=== PATIENT | male | born 1940 | race Caucasian/White ===

== ENCOUNTER 2018-09-14 19:08 | Inpatient (IN) | payer MEDICARE, OTHER ==
[2018-09-14 21:52] LABS: ABNORMAL IP MESSAGE 1; ADD MAN DIFF? NO; BASOPHILS % 0.1 % (0.0-2.0); HEMATOCRIT 29.8 % (42.0-52.0); HEMOGLOBIN 9.2 g/dl (14.0-18.0); LYMPHOCYTES # 0.3 10^3/ul (0.8-2.9); LYMPHOCYTES % 3.4 % (15.0-51.0); MEAN CORPUSCULAR HEMOGLOBIN 22.7 pg (29.0-33.0); MEAN CORPUSCULAR HGB CONC 30.9 g/dl (32.0-37.0); MEAN CORPUSCULAR VOLUME 73.6 fl (82.0-101.0); MEAN PLATELET VOLUME 10.8 fl (7.4-10.4); MONOCYTE # 0.9 10^3/ul (0.3-0.9); MONOCYTES % 9.2 % (0.0-11.0); NEUTROPHIL # 8.3 10^3/ul (1.6-7.5); PLATELET COUNT 161 10^3/UL (140-415); POSITIVE DIFF @See below; RED BLOOD COUNT 4.05 10^6/ul (4.70-6.10); RED CELL DISTRIBUTION WIDTH 18.6 % (11.5-14.5)
[2018-09-14 21:52] LABS: WHITE BLOOD COUNT 9.6 10^3/ul (4.8-10.8)
[2018-09-14 21:56] LABS: INR 2.33; PROTIME 26.2 Sec (11.9-14.9)
[2018-09-14 21:57] LABS: PARTIAL THROMBOPLASTIN TIME 38.3 Sec (23.0-35.0)
[2018-09-14 22:00] LABS: ALANINE AMINOTRANSFERASE 27 IU/L (13-69); ALBUMIN 4.3 g/dl (3.3-4.9); ALBUMIN/GLOBULIN RATIO 1.22; ALKALINE PHOSPHATASE 85 IU/L (42-121); ANION GAP 18 (5-13); ASPARTATE AMINO TRANSFERASE 39 IU/L (15-46); BILIRUBIN,INDIRECT 1.5 mg/dl (0-1.1); BILIRUBIN,TOTAL 1.5 mg/dl (0.2-1.3); BLOOD UREA NITROGEN 23 mg/dl (7-20); CARBON DIOXIDE 25 mmol/L (21-31); CHLORIDE 87 mmol/L (97-110); CREATININE 0.78 mg/dl (0.61-1.24); GLUCOSE 108 mg/dl (70-220); LIPASE 74 U/L (23-300); SODIUM 130 mmol/L (135-144); TOTAL PROTEIN 7.8 g/dl (6.1-8.1)
[2018-09-14 22:11] LABS: B-TYPE NATRIURETIC PEPTIDE 3610 PG/ML (0-450); TROPONIN-I 0.027 ng/ml (0.000-0.120)
[2018-09-14 22:35] LABS: AADO2 Arterial 66.2 mmHg (7.0-24.0); Allen Test ACCEPTAB; Arterial Base Excess 0.4 mmol/L (-3.0-3); Arterial Blood Gas Oxygen Sat 85.1 mmHG (95.0-100.0); Arterial COHb 1.1 % (0.0-3.0); Arterial Fraction of Oxyhgb 84.1 % (93.0-99.0); Arterial HCO3 23.1 mmol/L (22.0-26.0); Arterial MetHb 0.1 % (0.0-1.5); Arterial pCO2 30.6 mmhg (35-45); MODE ROOM AIR; Site Left Radial
[2018-09-14 22:52] LABS: ADD UMIC YES; UR ASCORBIC ACID NEGATIVE (NEGATIVE); UR BILIRUBIN (Dip) NEGATIVE (NEGATIVE); UR BLOOD (Dip) 2+ mg/dL (NEGATIVE); UR CLARITY CLEAR (CLEAR); UR COLOR YELLOW (YELLOW); UR GLUCOSE (Dip) NEGATIVE (NEGATIVE); UR KETONES (Dip) NEGATIVE (NEGATIVE); UR LEUKOCYTE ESTERASE (Dip) NEGATIVE Leu/ul (NEGATIVE); UR MUCUS MODERATE /HPF (NONE SEEN); UR NITRITE (Dip) NEGATIVE (NEGATIVE); UR RBC 2 /HPF (0-5); UR SPECIFIC GRAVITY (Dip) 1.015 (1.003-1.030); UR TOTAL PROTEIN (Dip) NEGATIVE (NEGATIVE); UR UROBILINOGEN (Dip) 1+ mg/dL (NEGATIVE); UR WBC 1 /HPF (0-5)
[2018-09-14] MEDS: ALBUTEROL 0.5% (NEB) 2.5 MG/0.5 ML AMP INH (23:24)
[2018-09-14] MEDS: IPRATROPIUM (NEB) 0.5 MG/2.5 ML AMP INH (23:24)
[2018-09-14] MEDS: CEFTRIAXONE 1 GM/50 ML (PMX) 50 ML IVPB (23:47)
[2018-09-14] MEDS: AZITHROMYCIN 500MG/NS (PMX) 250 ML IVPB (23:47)
[2018-09-15] MEDS: FUROSEMIDE 40 MG INJ IV ×2 (00:30→09:54)
[2018-09-15] MEDS ORDERED: NACL 0.9% 3 ML SYG IV (03:30)
[2018-09-15] MEDS ORDERED: ONDANSETRON 4 MG INJ IV (03:30)
[2018-09-15] MEDS ORDERED: ONDANSETRON 4 MG TAB PO (03:30)
[2018-09-15] MEDS ORDERED: ACETAMINOPHEN 325 MG TAB PO ×2 (03:30)
[2018-09-15] MEDS: FAMOTIDINE 20 MG TAB PO ×3 (04:00→21:53)
[2018-09-15] MEDS ORDERED: ERGOCALCIFEROL 50,000 UNIT CAP PO (09:00)
[2018-09-15 09:06] LABS: ADD MAN DIFF? NO
[2018-09-15 09:14] LABS: ABNORMAL IP MESSAGE 1; BASOPHILS % 0.1 % (0.0-2.0); HEMATOCRIT 27.7 % (42.0-52.0); HEMOGLOBIN 8.5 g/dl (14.0-18.0); LYMPHOCYTES # 0.4 10^3/ul (0.8-2.9); LYMPHOCYTES % 5.1 % (15.0-51.0); MEAN CORPUSCULAR HEMOGLOBIN 22.6 pg (29.0-33.0); MEAN CORPUSCULAR HGB CONC 30.7 g/dl (32.0-37.0); MEAN CORPUSCULAR VOLUME 73.7 fl (82.0-101.0); MONOCYTE # 0.8 10^3/ul (0.3-0.9); MONOCYTES % 11.9 % (0.0-11.0); NEUTROPHIL # 5.6 10^3/ul (1.6-7.5); NEUTROPHILS % 82.3 % (39.0-77.0); PLATELET COUNT 150 10^3/UL (140-415); POSITIVE DIFF @See below; RED BLOOD COUNT 3.76 10^6/ul (4.70-6.10); RED CELL DISTRIBUTION WIDTH 18.6 % (11.5-14.5)
[2018-09-15 09:14] LABS: WHITE BLOOD COUNT 6.8 10^3/ul (4.8-10.8)
[2018-09-15 09:37] LABS: ANION GAP 14 (5-13); BLOOD UREA NITROGEN 19 mg/dl (7-20); CALCIUM 8.6 mg/dl (8.4-10.2); CARBON DIOXIDE 28 mmol/L (21-31); CHLORIDE 87 mmol/L (97-110); CHOL/HDL RATIO 2.5 RATIO; CHOLESTEROL 69 mg/dl (100-200); CREATININE 0.79 mg/dl (0.61-1.24); GLUCOSE 113 mg/dl (70-220); HDL CHOLESTEROL 27 mg/dl (31-75); LDL CHOLESTEROL,CALCULATED 34 mg/dl; POTASSIUM 3.4 mmol/L (3.5-5.1); SODIUM 129 mmol/L (135-144); TRIGLYCERIDES 39 mg/dl (0-149)
[2018-09-15 09:47] LABS: TROPONIN-I 0.026 ng/ml (0.000-0.120)
[2018-09-15] MEDS: FOLIC ACID 1 MG TAB PO (09:53)
[2018-09-15] MEDS: SPIRONOLACTONE 25 MG TAB PO (09:53)
[2018-09-15] MEDS: CYANOCOBALAMIN 500 MCG TAB PO (09:53)
[2018-09-15] MEDS: DILTIAZEM 30 MG TAB PO ×3 (09:54→21:54)
[2018-09-15 10:27] LABS: DIGOXIN 1.1 ng/ml (1.0-2.0)
[2018-09-15 10:30] LABS: INR 2.56; PROTIME 28.2 Sec (11.9-14.9); PT RATIO 2.2
[2018-09-15 12:45] LABS: THYROID STIMULATING HORMONE 0.678 MIU/L (0.465-4.680)
[2018-09-15] MEDS: DIGOXIN 0.125 MG TAB PO (14:04)
[2018-09-15 15:11] LABS: TROPONIN-I 0.018 ng/ml (0.000-0.120)
[2018-09-15] MEDS: WARFARIN 3 MG TAB PO (17:18)
[2018-09-15 17:39] LABS: FREE T4 (FREE THYROXINE) 1.97 ng/dl (0.78-2.44)
[2018-09-15 17:53] LABS: THYROID STIMULATING HORMONE 0.523 MIU/L (0.465-4.680)
[2018-09-15 17:56] LABS: IRON 25 ug/dl (35-150)
[2018-09-15 17:57] LABS: FERRITIN 24.4 ng/ml (11.1-264.0)
[2018-09-15 18:05] LABS: % IRON SATURATION 6 % SAT (22-52); TOTAL IRON BINDING CAPACITY 422 ug/dl (241-421)
[2018-09-15] MEDS: TAMSULOSIN (SR) 0.4 MG CAP PO (21:53)
[2018-09-16 05:30] LABS: ADD MAN DIFF? NO
[2018-09-16 05:39] LABS: ABNORMAL IP MESSAGE 1; BASOPHILS % 0.1 % (0.0-2.0); HEMATOCRIT 29.9 % (42.0-52.0); HEMOGLOBIN 9.3 g/dl (14.0-18.0); LYMPHOCYTES # 0.4 10^3/ul (0.8-2.9); LYMPHOCYTES % 4.7 % (15.0-51.0); MEAN CORPUSCULAR HEMOGLOBIN 22.8 pg (29.0-33.0); MEAN CORPUSCULAR HGB CONC 31.1 g/dl (32.0-37.0); MEAN CORPUSCULAR VOLUME 73.3 fl (82.0-101.0); MEAN PLATELET VOLUME 10.9 fl (7.4-10.4); MONOCYTE # 1.1 10^3/ul (0.3-0.9); MONOCYTES % 12.6 % (0.0-11.0); NEUTROPHIL # 7.3 10^3/ul (1.6-7.5); NEUTROPHILS % 81.9 % (39.0-77.0); NUCLEATED RED BLOOD CELLS% 0.2 /100WBC (0.0-0.0); PLATELET COUNT 168 10^3/UL (140-415); POSITIVE DIFF @See below; RED BLOOD COUNT 4.08 10^6/ul (4.70-6.10); RED CELL DISTRIBUTION WIDTH 18.5 % (11.5-14.5)
[2018-09-16 05:39] LABS: WHITE BLOOD COUNT 8.9 10^3/ul (4.8-10.8)
[2018-09-16 05:53] LABS: INR 2.72; PROTIME 29.6 Sec (11.9-14.9); PT RATIO 2.3
[2018-09-16 05:58] LABS: DIGOXIN 1.2 ng/ml (1.0-2.0)
[2018-09-16] MEDS: FUROSEMIDE 40 MG INJ IV ×3 (06:06→17:31)
[2018-09-16 06:13] LABS: HEMOGLOBIN A1C 5.4 % (0-5.9)
[2018-09-16 06:14] LABS: ALANINE AMINOTRANSFERASE 29 IU/L (13-69); ALBUMIN 3.8 g/dl (3.3-4.9); ALBUMIN/GLOBULIN RATIO 1.18; ALKALINE PHOSPHATASE 80 IU/L (42-121); ANION GAP 14 (5-13); ASPARTATE AMINO TRANSFERASE 39 IU/L (15-46); BILIRUBIN,INDIRECT 1.5 mg/dl (0-1.1); BILIRUBIN,TOTAL 1.5 mg/dl (0.2-1.3); BLOOD UREA NITROGEN 25 mg/dl (7-20); CALCIUM 8.7 mg/dl (8.4-10.2); CARBON DIOXIDE 29 mmol/L (21-31); CHLORIDE 86 mmol/L (97-110); CHOL/HDL RATIO 2.5 RATIO; CHOLESTEROL 70 mg/dl (100-200); CREATININE 0.74 mg/dl (0.61-1.24); GLUCOSE 123 mg/dl (70-220); HDL CHOLESTEROL 27 mg/dl (31-75); LDL CHOLESTEROL,CALCULATED 34 mg/dl; POTASSIUM 3.8 mmol/L (3.5-5.1); SODIUM 129 mmol/L (135-144); TRIGLYCERIDES 44 mg/dl (0-149)
[2018-09-16] MEDS: FOLIC ACID 1 MG TAB PO (09:05)
[2018-09-16] MEDS: SPIRONOLACTONE 25 MG TAB PO (09:06)
[2018-09-16] MEDS: DILTIAZEM 30 MG TAB PO ×3 (09:06→21:16)
[2018-09-16] MEDS: CYANOCOBALAMIN 500 MCG TAB PO (09:06)
[2018-09-16] MEDS: FAMOTIDINE 20 MG TAB PO ×2 (09:06→21:16)
[2018-09-16 10:47] LABS: B-TYPE NATRIURETIC PEPTIDE 5610 PG/ML (0-450)
[2018-09-16 12:37] LABS: AADO2 Arterial 595.8 mmHg (7.0-24.0); Arterial Base Excess 3.6 mmol/L (-3.0-3); Arterial Blood Gas Oxygen Sat 93.3 mmHG (95.0-100.0); Arterial COHb 1.1 % (0.0-3.0); Arterial Fraction of Oxyhgb 91.9 % (93.0-99.0); Arterial HCO3 28.8 mmol/L (22.0-26.0); Arterial MetHb 0.4 % (0.0-1.5); Arterial pCO2 46.2 mmhg (35-45); MODE MASK - NRB; Site Right Brachial
[2018-09-16] MEDS: DIGOXIN 0.125 MG TAB PO (13:15)
[2018-09-16] MEDS: PHYTONADIONE 10 MG/ML INJ IM (14:53)
[2018-09-16] MEDS ORDERED: WARFARIN 2 MG TAB PO (17:00)
[2018-09-16] MEDS: TAMSULOSIN (SR) 0.4 MG CAP PO (21:16)
[2018-09-17] MEDS: FUROSEMIDE 40 MG INJ IV ×2 (05:19→17:21)
[2018-09-17 05:21] LABS: ADD MAN DIFF? NO
[2018-09-17 05:26] LABS: ABNORMAL IP MESSAGE 1; BASOPHILS % 0.1 % (0.0-2.0); HEMATOCRIT 29.2 % (42.0-52.0); HEMOGLOBIN 9.1 g/dl (14.0-18.0); LYMPHOCYTES # 0.5 10^3/ul (0.8-2.9); LYMPHOCYTES % 6.5 % (15.0-51.0); MEAN CORPUSCULAR HEMOGLOBIN 22.8 pg (29.0-33.0); MEAN CORPUSCULAR HGB CONC 31.2 g/dl (32.0-37.0); MEAN PLATELET VOLUME 9.6 fl (7.4-10.4); MONOCYTE # 1.1 10^3/ul (0.3-0.9); MONOCYTES % 13.5 % (0.0-11.0); NEUTROPHIL # 6.3 10^3/ul (1.6-7.5); NEUTROPHILS % 79.1 % (39.0-77.0); PLATELET COUNT 156 10^3/UL (140-415); POSITIVE DIFF @See below; RED CELL DISTRIBUTION WIDTH 18.6 % (11.5-14.5)
[2018-09-17 05:44] LABS: INR 2.23; PROTIME 25.3 Sec (11.9-14.9)
[2018-09-17 05:55] LABS: ALANINE AMINOTRANSFERASE 26 IU/L (13-69); ALBUMIN 3.4 g/dl (3.3-4.9); ALBUMIN/GLOBULIN RATIO 1.13; ALKALINE PHOSPHATASE 72 IU/L (42-121); ANION GAP 12 (5-13); ASPARTATE AMINO TRANSFERASE 33 IU/L (15-46); BILIRUBIN,INDIRECT 1.6 mg/dl (0-1.1); BILIRUBIN,TOTAL 1.6 mg/dl (0.2-1.3); BLOOD UREA NITROGEN 28 mg/dl (7-20); CALCIUM 8.6 mg/dl (8.4-10.2); CARBON DIOXIDE 34 mmol/L (21-31); CHLORIDE 85 mmol/L (97-110); CREATININE 0.75 mg/dl (0.61-1.24); GLUCOSE 99 mg/dl (70-220); POTASSIUM 3.1 mmol/L (3.5-5.1); SODIUM 131 mmol/L (135-144); TOTAL PROTEIN 6.4 g/dl (6.1-8.1)
[2018-09-17 05:58] LABS: PHOSPHORUS 2.9 mg/dl (2.5-4.9)
[2018-09-17 05:58] LABS: MAGNESIUM 1.9 mg/dl (1.7-2.5)
[2018-09-17] MEDS: SPIRONOLACTONE 25 MG TAB PO (08:59)
[2018-09-17] MEDS: FOLIC ACID 1 MG TAB PO (08:59)
[2018-09-17] MEDS: CYANOCOBALAMIN 500 MCG TAB PO (08:59)
[2018-09-17] MEDS: FAMOTIDINE 20 MG TAB PO ×2 (08:59→20:19)
[2018-09-17] MEDS: DILTIAZEM 30 MG TAB PO ×3 (09:00→20:18)
[2018-09-17] MEDS ORDERED: PHYTONADIONE 10 MG/ML INJ IM (10:30)
[2018-09-17] MEDS: POTASSIUM CHLORIDE (SR) 20 MEQ TAB PO ×2 (10:33→14:05)
[2018-09-17] MEDS: DIGOXIN 0.125 MG TAB PO (14:05)
[2018-09-17] MEDS: TAMSULOSIN (SR) 0.4 MG CAP PO (20:19)
[2018-09-18] MEDS: FUROSEMIDE 40 MG INJ IV (06:12)
[2018-09-18 06:37] LABS: ADD MAN DIFF? NO
[2018-09-18 06:41] LABS: HEMOGLOBIN 9.1 g/dl (14.0-18.0); LYMPHOCYTES # 0.6 10^3/ul (0.8-2.9); LYMPHOCYTES % 10.5 % (15.0-51.0); MEAN CORPUSCULAR HEMOGLOBIN 22.8 pg (29.0-33.0); MEAN CORPUSCULAR HGB CONC 30.3 g/dl (32.0-37.0); MEAN CORPUSCULAR VOLUME 75.2 fl (82.0-101.0); MEAN PLATELET VOLUME 9.7 fl (7.4-10.4); MONOCYTE # 0.8 10^3/ul (0.3-0.9); NEUTROPHIL # 4.5 10^3/ul (1.6-7.5); PLATELET COUNT 166 10^3/UL (140-415); RED BLOOD COUNT 3.99 10^6/ul (4.70-6.10); RED CELL DISTRIBUTION WIDTH 19.1 % (11.5-14.5)
[2018-09-18 07:00] LABS: INR 1.55; PROTIME 18.9 Sec (11.9-14.9); PT RATIO 1.5
[2018-09-18 07:01] LABS: PARTIAL THROMBOPLASTIN TIME 37.9 Sec (23.0-35.0)
[2018-09-18 07:17] LABS: MAGNESIUM 2.2 mg/dl (1.7-2.5)
[2018-09-18 07:21] LABS: ANION GAP 10 (5-13); BLOOD UREA NITROGEN 32 mg/dl (7-20); CALCIUM 8.5 mg/dl (8.4-10.2); CARBON DIOXIDE 38 mmol/L (21-31); CHLORIDE 88 mmol/L (97-110); CREATININE 0.84 mg/dl (0.61-1.24); GLUCOSE 90 mg/dl (70-220); POTASSIUM 3.5 mmol/L (3.5-5.1); SODIUM 136 mmol/L (135-144)
[2018-09-18] MEDS: FAMOTIDINE 20 MG TAB PO ×2 (08:42→21:27)
[2018-09-18] MEDS: CYANOCOBALAMIN 500 MCG TAB PO (08:42)
[2018-09-18] MEDS: FOLIC ACID 1 MG TAB PO (08:42)
[2018-09-18] MEDS: SPIRONOLACTONE 25 MG TAB PO (08:42)
[2018-09-18] MEDS: DILTIAZEM 30 MG TAB PO ×3 (09:00→21:28)
[2018-09-18] MEDS: POTASSIUM CHLORIDE (SR) 20 MEQ TAB PO (10:24)
[2018-09-18] MEDS: POTASSIUM CHLORIDE 20 MEQ POWDER FOR ORAL SOLN PO (11:26)
[2018-09-18] MEDS: DIGOXIN 0.125 MG TAB PO (13:04)
[2018-09-18] MEDS: LIDOCAINE 1% (MPF) 5 ML VIAL (15:32)
[2018-09-18] MEDS: TAMSULOSIN (SR) 0.4 MG CAP PO (21:27)
[2018-09-19 05:30] LABS: ADD MAN DIFF? NO
[2018-09-19 05:42] LABS: WHITE BLOOD COUNT 5.1 10^3/ul (4.8-10.8)
[2018-09-19 05:42] LABS: EOSINOPHILS % 0.2 % (0.0-7.0); HEMATOCRIT 30.1 % (42.0-52.0); LYMPHOCYTES # 0.8 10^3/ul (0.8-2.9); LYMPHOCYTES % 16.2 % (15.0-51.0); MEAN CORPUSCULAR HEMOGLOBIN 22.3 pg (29.0-33.0); MEAN CORPUSCULAR HGB CONC 29.9 g/dl (32.0-37.0); MEAN CORPUSCULAR VOLUME 74.5 fl (82.0-101.0); MEAN PLATELET VOLUME 9.7 fl (7.4-10.4); MONOCYTE # 0.7 10^3/ul (0.3-0.9); MONOCYTES % 13.8 % (0.0-11.0); NEUTROPHIL # 3.5 10^3/ul (1.6-7.5); NEUTROPHILS % 69.4 % (39.0-77.0); PLATELET COUNT 179 10^3/UL (140-415); RED BLOOD COUNT 4.04 10^6/ul (4.70-6.10); RED CELL DISTRIBUTION WIDTH 19.4 % (11.5-14.5)
[2018-09-19 05:56] LABS: INR 1.43; PROTIME 17.7 Sec (11.9-14.9); PT RATIO 1.4
[2018-09-19 06:01] LABS: ANION GAP 10 (5-13); BLOOD UREA NITROGEN 32 mg/dl (7-20); CALCIUM 8.6 mg/dl (8.4-10.2); CARBON DIOXIDE 35 mmol/L (21-31); CHLORIDE 91 mmol/L (97-110); CREATININE 0.76 mg/dl (0.61-1.24); GLUCOSE 91 mg/dl (70-220); POTASSIUM 4.4 mmol/L (3.5-5.1); SODIUM 136 mmol/L (135-144)
[2018-09-19 06:04] LABS: MAGNESIUM 2.2 mg/dl (1.7-2.5)
[2018-09-19 06:04] LABS: PHOSPHORUS 2.8 mg/dl (2.5-4.9)
[2018-09-19] MEDS: CYANOCOBALAMIN 500 MCG TAB PO (08:08)
[2018-09-19] MEDS: SPIRONOLACTONE 25 MG TAB PO (08:08)
[2018-09-19] MEDS: FOLIC ACID 1 MG TAB PO (08:08)
[2018-09-19] MEDS: FAMOTIDINE 20 MG TAB PO ×2 (08:09→20:12)
[2018-09-19] MEDS: DILTIAZEM 30 MG TAB PO ×3 (08:09→20:12)
[2018-09-19] MEDS: ERGOCALCIFEROL 50,000 UNIT CAP PO (08:09)
[2018-09-19] MEDS: FUROSEMIDE 40 MG INJ IV (08:10)
[2018-09-19] MEDS: DIGOXIN 0.125 MG TAB PO (13:01)
[2018-09-19] MEDS: WARFARIN 3 MG TAB GTB (16:40)
[2018-09-19] MEDS: DOCUSATE SODIUM 100 MG CAP PO (20:12)
[2018-09-19] MEDS: BISACODYL (EC) 5 MG TAB PO (20:12)
[2018-09-19] MEDS: TAMSULOSIN (SR) 0.4 MG CAP PO (20:12)
[2018-09-20 06:17] LABS: ADD MAN DIFF? NO
[2018-09-20 06:19] LABS: WHITE BLOOD COUNT 8.2 10^3/ul (4.8-10.8)
[2018-09-20 06:19] LABS: ABNORMAL IP MESSAGE 1; BASOPHILS % 0.1 % (0.0-2.0); EOSINOPHILS % 0.2 % (0.0-7.0); HEMATOCRIT 34.6 % (42.0-52.0); HEMOGLOBIN 10.5 g/dl (14.0-18.0); LYMPHOCYTES # 0.5 10^3/ul (0.8-2.9); LYMPHOCYTES % 6.6 % (15.0-51.0); MEAN CORPUSCULAR HEMOGLOBIN 22.8 pg (29.0-33.0); MEAN CORPUSCULAR HGB CONC 30.3 g/dl (32.0-37.0); MEAN CORPUSCULAR VOLUME 75.1 fl (82.0-101.0); MONOCYTE # 0.8 10^3/ul (0.3-0.9); NEUTROPHIL # 6.7 10^3/ul (1.6-7.5); NEUTROPHILS % 82.5 % (39.0-77.0); PLATELET COUNT 191 10^3/UL (140-415); POSITIVE DIFF @See below; RED BLOOD COUNT 4.61 10^6/ul (4.70-6.10); RED CELL DISTRIBUTION WIDTH 19.9 % (11.5-14.5)
[2018-09-20 06:38] LABS: PROTIME 15.4 Sec (11.9-14.9); PT RATIO 1.2
[2018-09-20 06:42] LABS: ANION GAP 14 (5-13); BLOOD UREA NITROGEN 28 mg/dl (7-20); CALCIUM 9.2 mg/dl (8.4-10.2); CARBON DIOXIDE 31 mmol/L (21-31); CHLORIDE 91 mmol/L (97-110); GLUCOSE 102 mg/dl (70-220); POTASSIUM 4.8 mmol/L (3.5-5.1); SODIUM 136 mmol/L (135-144)
[2018-09-20 07:10] LABS: PHOSPHORUS 4.1 mg/dl (2.5-4.9)
[2018-09-20 07:10] LABS: MAGNESIUM 2.2 mg/dl (1.7-2.5)
[2018-09-20] MEDS: CYANOCOBALAMIN 500 MCG TAB PO (08:35)
[2018-09-20] MEDS: FOLIC ACID 1 MG TAB PO (08:35)
[2018-09-20] MEDS: SPIRONOLACTONE 25 MG TAB PO (08:35)
[2018-09-20] MEDS: FUROSEMIDE 40 MG INJ IV (08:35)
[2018-09-20] MEDS: FAMOTIDINE 20 MG TAB PO ×2 (08:35→20:20)
[2018-09-20] MEDS: DILTIAZEM 30 MG TAB PO ×3 (08:36→20:20)
[2018-09-20] MEDS: DIGOXIN 0.125 MG TAB PO (12:50)
[2018-09-20] MEDS: LIDOCAINE 1% (MPF) 5 ML VIAL (16:16)
[2018-09-20] MEDS: WARFARIN 3 MG TAB GTB (16:57)
[2018-09-20] MEDS: MAGNESIUM HYDROXIDE 30ML CUP PO (20:20)
[2018-09-20] MEDS: TAMSULOSIN (SR) 0.4 MG CAP PO (20:20)
[2018-09-21 05:32] LABS: ADD MAN DIFF? NO
[2018-09-21 05:43] LABS: BASOPHILS % 0.2 % (0.0-2.0); EOSINOPHILS % 0.7 % (0.0-7.0); HEMATOCRIT 33.1 % (42.0-52.0); LYMPHOCYTES # 0.7 10^3/ul (0.8-2.9); MEAN CORPUSCULAR HEMOGLOBIN 22.8 pg (29.0-33.0); MEAN CORPUSCULAR HGB CONC 30.2 g/dl (32.0-37.0); MEAN CORPUSCULAR VOLUME 75.4 fl (82.0-101.0); MEAN PLATELET VOLUME 10.2 fl (7.4-10.4); MONOCYTE # 0.8 10^3/ul (0.3-0.9); MONOCYTES % 13.5 % (0.0-11.0); NEUTROPHIL # 4.1 10^3/ul (1.6-7.5); NEUTROPHILS % 73.1 % (39.0-77.0); PLATELET COUNT 205 10^3/UL (140-415); RED BLOOD COUNT 4.39 10^6/ul (4.70-6.10); RED CELL DISTRIBUTION WIDTH 19.7 % (11.5-14.5)
[2018-09-21 05:43] LABS: WHITE BLOOD COUNT 5.7 10^3/ul (4.8-10.8)
[2018-09-21 06:05] LABS: ALANINE AMINOTRANSFERASE 23 IU/L (13-69); ALBUMIN 3.6 g/dl (3.3-4.9); ALKALINE PHOSPHATASE 103 IU/L (42-121); ANION GAP 11 (5-13); ASPARTATE AMINO TRANSFERASE 23 IU/L (15-46); BILIRUBIN,INDIRECT 1.7 mg/dl (0-1.1); BILIRUBIN,TOTAL 1.7 mg/dl (0.2-1.3); BLOOD UREA NITROGEN 30 mg/dl (7-20); CALCIUM 9.2 mg/dl (8.4-10.2); CARBON DIOXIDE 35 mmol/L (21-31); CHLORIDE 92 mmol/L (97-110); CREATININE 0.74 mg/dl (0.61-1.24); GLUCOSE 103 mg/dl (70-220); MAGNESIUM 2.3 mg/dl (1.7-2.5); POTASSIUM 4.8 mmol/L (3.5-5.1); SODIUM 138 mmol/L (135-144); TOTAL PROTEIN 7.2 g/dl (6.1-8.1)
[2018-09-21 06:11] LABS: DIGOXIN 1.4 ng/ml (1.0-2.0)
[2018-09-21 06:11] LABS: INR 1.39; PROTIME 17.3 Sec (11.9-14.9); PT RATIO 1.4
[2018-09-21] MEDS: FUROSEMIDE 40 MG INJ IV (08:12)
[2018-09-21] MEDS: FAMOTIDINE 20 MG TAB PO ×2 (08:13→20:15)
[2018-09-21] MEDS: CYANOCOBALAMIN 500 MCG TAB PO (08:13)
[2018-09-21] MEDS: SPIRONOLACTONE 25 MG TAB PO (08:13)
[2018-09-21] MEDS: FOLIC ACID 1 MG TAB PO (08:13)
[2018-09-21] MEDS: DILTIAZEM 30 MG TAB PO ×3 (08:13→20:16)
[2018-09-21] MEDS: ENOXAPARIN 100 MG/ML SYG SC (09:20)
[2018-09-21] MEDS: DIGOXIN 0.125 MG TAB PO (12:35)
[2018-09-21] MEDS: TAMSULOSIN (SR) 0.4 MG CAP PO (20:15)
[2018-09-22 06:12] LABS: ADD MAN DIFF? NO
[2018-09-22 06:15] LABS: WHITE BLOOD COUNT 4.8 10^3/ul (4.8-10.8)
[2018-09-22 06:15] LABS: BASOPHILS % 0.2 % (0.0-2.0); EOSINOPHILS # 0.1 10^3/ul (0.0-0.5); EOSINOPHILS % 1.7 % (0.0-7.0); HEMATOCRIT 33.5 % (42.0-52.0); LYMPHOCYTES # 0.7 10^3/ul (0.8-2.9); LYMPHOCYTES % 14.4 % (15.0-51.0); MEAN CORPUSCULAR HEMOGLOBIN 22.8 pg (29.0-33.0); MEAN CORPUSCULAR HGB CONC 29.9 g/dl (32.0-37.0); MEAN CORPUSCULAR VOLUME 76.3 fl (82.0-101.0); MEAN PLATELET VOLUME 9.6 fl (7.4-10.4); MONOCYTE # 0.7 10^3/ul (0.3-0.9); MONOCYTES % 14.6 % (0.0-11.0); NEUTROPHIL # 3.3 10^3/ul (1.6-7.5); NEUTROPHILS % 68.5 % (39.0-77.0); PLATELET COUNT 201 10^3/UL (140-415); RED BLOOD COUNT 4.39 10^6/ul (4.70-6.10); RED CELL DISTRIBUTION WIDTH 19.8 % (11.5-14.5)
[2018-09-22 06:41] LABS: ANION GAP 11 (5-13); BLOOD UREA NITROGEN 35 mg/dl (7-20); CALCIUM 9.1 mg/dl (8.4-10.2); CARBON DIOXIDE 33 mmol/L (21-31); CHLORIDE 91 mmol/L (97-110); GLUCOSE 104 mg/dl (70-220); POTASSIUM 4.4 mmol/L (3.5-5.1); SODIUM 135 mmol/L (135-144)
[2018-09-22 06:42] LABS: PHOSPHORUS 3.7 mg/dl (2.5-4.9)
[2018-09-22 06:42] LABS: MAGNESIUM 2.4 mg/dl (1.7-2.5)
[2018-09-22] MEDS: CYANOCOBALAMIN 500 MCG TAB PO (09:42)
[2018-09-22] MEDS: FOLIC ACID 1 MG TAB PO (09:43)
[2018-09-22] MEDS: SPIRONOLACTONE 25 MG TAB PO (09:43)
[2018-09-22] MEDS: FAMOTIDINE 20 MG TAB PO ×2 (09:43→21:28)
[2018-09-22] MEDS: FUROSEMIDE 40 MG INJ IV (09:49)
[2018-09-22] MEDS: DILTIAZEM 30 MG TAB PO ×3 (09:49→21:28)
[2018-09-22] MEDS: ENOXAPARIN 60 MG/0.6 ML SYG SC (10:06)
[2018-09-22 13:36] LABS: AADO2 Arterial 55.4 mmHg (7.0-24.0); Arterial Base Excess 8.4 mmol/L (-3.0-3); Arterial COHb 1.1 % (0.0-3.0); Arterial Fraction of Oxyhgb 80.9 % (93.0-99.0); Arterial MetHb 0.3 % (0.0-1.5); Arterial pCO2 40.5 mmhg (35-45); MODE ROOM AIR; Site Right Brachial
[2018-09-22] MEDS: DIGOXIN 0.125 MG TAB PO (13:51)
[2018-09-22] MEDS: WARFARIN 3 MG TAB GTB (17:09)
[2018-09-22] MEDS: TAMSULOSIN (SR) 0.4 MG CAP PO (21:32)
[2018-09-22] MEDS: DOCUSATE SODIUM 100 MG CAP PO (21:42)
[2018-09-23 05:18] LABS: ADD MAN DIFF? NO
[2018-09-23 05:33] LABS: WHITE BLOOD COUNT 10.8 10^3/ul (4.8-10.8)
[2018-09-23 05:33] LABS: ABNORMAL IP MESSAGE 1; BASOPHILS % 0.2 % (0.0-2.0); EOSINOPHILS % 0.1 % (0.0-7.0); HEMOGLOBIN 10.6 g/dl (14.0-18.0); LYMPHOCYTES # 0.4 10^3/ul (0.8-2.9); LYMPHOCYTES % 3.8 % (15.0-51.0); MEAN CORPUSCULAR HEMOGLOBIN 23.1 pg (29.0-33.0); MEAN CORPUSCULAR HGB CONC 31.2 g/dl (32.0-37.0); MEAN CORPUSCULAR VOLUME 74.1 fl (82.0-101.0); MEAN PLATELET VOLUME 9.8 fl (7.4-10.4); MONOCYTES % 9.1 % (0.0-11.0); NEUTROPHIL # 9.3 10^3/ul (1.6-7.5); NEUTROPHILS % 86.3 % (39.0-77.0); PLATELET COUNT 222 10^3/UL (140-415); POSITIVE DIFF @See below; RED BLOOD COUNT 4.59 10^6/ul (4.70-6.10); RED CELL DISTRIBUTION WIDTH 20.2 % (11.5-14.5)
[2018-09-23 05:52] LABS: PROTIME 16.4 Sec (11.9-14.9); PT RATIO 1.3
[2018-09-23 06:08] LABS: DIGOXIN 1.1 ng/ml (1.0-2.0)
[2018-09-23 06:30] LABS: ALANINE AMINOTRANSFERASE 30 IU/L (13-69); ALBUMIN 3.8 g/dl (3.3-4.9); ALBUMIN/GLOBULIN RATIO 1.11; ALKALINE PHOSPHATASE 113 IU/L (42-121); ANION GAP 14 (5-13); ASPARTATE AMINO TRANSFERASE 21 IU/L (15-46); BILIRUBIN,INDIRECT 1.5 mg/dl (0-1.1); BILIRUBIN,TOTAL 1.5 mg/dl (0.2-1.3); BLOOD UREA NITROGEN 33 mg/dl (7-20); CALCIUM 9.3 mg/dl (8.4-10.2); CARBON DIOXIDE 32 mmol/L (21-31); CHLORIDE 91 mmol/L (97-110); CREATININE 0.79 mg/dl (0.61-1.24); GLUCOSE 131 mg/dl (70-220); MAGNESIUM 2.2 mg/dl (1.7-2.5); POTASSIUM 4.3 mmol/L (3.5-5.1); SODIUM 137 mmol/L (135-144); TOTAL PROTEIN 7.2 g/dl (6.1-8.1)
[2018-09-23 06:31] LABS: B-TYPE NATRIURETIC PEPTIDE 2300 PG/ML (0-450)
[2018-09-23] MEDS: FOLIC ACID 1 MG TAB PO (08:17)
[2018-09-23] MEDS: CYANOCOBALAMIN 500 MCG TAB PO (08:18)
[2018-09-23] MEDS: DILTIAZEM 30 MG TAB PO ×3 (08:18→21:38)
[2018-09-23] MEDS: SPIRONOLACTONE 25 MG TAB PO (08:18)
[2018-09-23] MEDS: FAMOTIDINE 20 MG TAB PO ×2 (08:18→21:37)
[2018-09-23] MEDS: FUROSEMIDE 40 MG INJ IV (08:19)
[2018-09-23] MEDS: DIGOXIN 0.125 MG TAB PO (14:41)
[2018-09-23] MEDS: ENOXAPARIN 80 MG/0.8 ML SYG SC (20:29)
[2018-09-23] MEDS: FUROSEMIDE 20 MG INJ IV (20:29)
[2018-09-23] MEDS ORDERED: BISACODYL 10 MG SUPP PR (21:30)
[2018-09-23] MEDS: DOCUSATE SODIUM 100 MG CAP PO (21:37)
[2018-09-23] MEDS: TAMSULOSIN (SR) 0.4 MG CAP PO (21:40)
[2018-09-24 06:09] LABS: ADD MAN DIFF? NO
[2018-09-24 06:23] LABS: WHITE BLOOD COUNT 6.5 10^3/ul (4.8-10.8)
[2018-09-24 06:23] LABS: BASOPHILS % 0.2 % (0.0-2.0); EOSINOPHILS % 0.5 % (0.0-7.0); HEMATOCRIT 32.5 % (42.0-52.0); HEMOGLOBIN 10.1 g/dl (14.0-18.0); LYMPHOCYTES # 0.6 10^3/ul (0.8-2.9); LYMPHOCYTES % 9.8 % (15.0-51.0); MEAN CORPUSCULAR HEMOGLOBIN 23.2 pg (29.0-33.0); MEAN CORPUSCULAR HGB CONC 31.1 g/dl (32.0-37.0); MEAN CORPUSCULAR VOLUME 74.5 fl (82.0-101.0); MEAN PLATELET VOLUME 10.3 fl (7.4-10.4); MONOCYTE # 0.7 10^3/ul (0.3-0.9); MONOCYTES % 11.3 % (0.0-11.0); NEUTROPHIL # 5.1 10^3/ul (1.6-7.5); NEUTROPHILS % 77.6 % (39.0-77.0); PLATELET COUNT 201 10^3/UL (140-415); RED BLOOD COUNT 4.36 10^6/ul (4.70-6.10); RED CELL DISTRIBUTION WIDTH 20.2 % (11.5-14.5)
[2018-09-24 06:27] LABS: INR 1.49; PROTIME 18.3 Sec (11.9-14.9); PT RATIO 1.4
[2018-09-24 06:41] LABS: ANION GAP 10 (5-13); BLOOD UREA NITROGEN 35 mg/dl (7-20); CALCIUM 9.1 mg/dl (8.4-10.2); CARBON DIOXIDE 34 mmol/L (21-31); CHLORIDE 92 mmol/L (97-110); CREATININE 0.81 mg/dl (0.61-1.24); GLUCOSE 108 mg/dl (70-220); POTASSIUM 3.7 mmol/L (3.5-5.1); SODIUM 136 mmol/L (135-144)
[2018-09-24 06:50] LABS: MAGNESIUM 2.2 mg/dl (1.7-2.5)
[2018-09-24 06:50] LABS: PHOSPHORUS 3.1 mg/dl (2.5-4.9)
[2018-09-24] MEDS: SPIRONOLACTONE 25 MG TAB PO (08:54)
[2018-09-24] MEDS: DILTIAZEM 30 MG TAB PO ×3 (08:54→20:46)
[2018-09-24] MEDS: CYANOCOBALAMIN 500 MCG TAB PO (08:55)
[2018-09-24] MEDS: FAMOTIDINE 20 MG TAB PO ×2 (08:55→20:46)
[2018-09-24] MEDS: FOLIC ACID 1 MG TAB PO (08:55)
[2018-09-24] MEDS: FUROSEMIDE 40 MG INJ IV (08:55)
[2018-09-24] MEDS: DIGOXIN 0.125 MG TAB PO (13:54)
[2018-09-24] MEDS: WARFARIN 3 MG TAB GTB (17:28)
[2018-09-24] MEDS: ENOXAPARIN 80 MG/0.8 ML SYG SC (20:10)
[2018-09-24] MEDS: TAMSULOSIN (SR) 0.4 MG CAP PO (20:46)
[2018-09-25 05:41] LABS: ADD MAN DIFF? NO
[2018-09-25 05:42] LABS: BASOPHILS % 0.3 % (0.0-2.0); EOSINOPHILS % 0.3 % (0.0-7.0); HEMATOCRIT 33.3 % (42.0-52.0); HEMOGLOBIN 10.3 g/dl (14.0-18.0); LYMPHOCYTES # 0.7 10^3/ul (0.8-2.9); LYMPHOCYTES % 11.8 % (15.0-51.0); MEAN CORPUSCULAR HGB CONC 30.9 g/dl (32.0-37.0); MEAN CORPUSCULAR VOLUME 74.5 fl (82.0-101.0); MEAN PLATELET VOLUME 10.4 fl (7.4-10.4); MONOCYTE # 0.6 10^3/ul (0.3-0.9); MONOCYTES % 10.2 % (0.0-11.0); NEUTROPHIL # 4.8 10^3/ul (1.6-7.5); NEUTROPHILS % 76.8 % (39.0-77.0); PLATELET COUNT 178 10^3/UL (140-415); RED BLOOD COUNT 4.47 10^6/ul (4.70-6.10); RED CELL DISTRIBUTION WIDTH 20.9 % (11.5-14.5)
[2018-09-25 05:42] LABS: WHITE BLOOD COUNT 6.2 10^3/ul (4.8-10.8)
[2018-09-25 06:14] LABS: ANION GAP 10 (5-13); BLOOD UREA NITROGEN 35 mg/dl (7-20); CALCIUM 9.3 mg/dl (8.4-10.2); CARBON DIOXIDE 34 mmol/L (21-31); CHLORIDE 93 mmol/L (97-110); GLUCOSE 108 mg/dl (70-220); INR 1.27; POTASSIUM 4.1 mmol/L (3.5-5.1); PROTIME 16.1 Sec (11.9-14.9); PT RATIO 1.3; SODIUM 137 mmol/L (135-144)
[2018-09-25 06:17] LABS: PHOSPHORUS 3.7 mg/dl (2.5-4.9)
[2018-09-25 06:17] LABS: MAGNESIUM 2.2 mg/dl (1.7-2.5)
[2018-09-25] MEDS: FOLIC ACID 1 MG TAB PO (10:17)
[2018-09-25] MEDS: CYANOCOBALAMIN 500 MCG TAB PO (10:17)
[2018-09-25] MEDS: SPIRONOLACTONE 25 MG TAB PO (10:17)
[2018-09-25] MEDS: FAMOTIDINE 20 MG TAB PO ×2 (10:17→20:52)
[2018-09-25] MEDS: DILTIAZEM 30 MG TAB PO ×3 (10:18→20:53)
[2018-09-25] MEDS: FUROSEMIDE 40 MG INJ IV (10:18)
[2018-09-25] MEDS: DIGOXIN 0.125 MG TAB PO (15:55)
[2018-09-25] MEDS: WARFARIN 3 MG TAB GTB (18:15)
[2018-09-25] MEDS: TAMSULOSIN (SR) 0.4 MG CAP PO (20:53)
[2018-09-25] MEDS: ENOXAPARIN 80 MG/0.8 ML SYG SC (21:08)
[2018-09-26 05:58] LABS: ADD MAN DIFF? NO
[2018-09-26 06:04] LABS: BASOPHILS % 0.2 % (0.0-2.0); EOSINOPHILS % 0.4 % (0.0-7.0); HEMATOCRIT 33.4 % (42.0-52.0); HEMOGLOBIN 10.4 g/dl (14.0-18.0); LYMPHOCYTES # 0.7 10^3/ul (0.8-2.9); LYMPHOCYTES % 12.2 % (15.0-51.0); MEAN CORPUSCULAR HEMOGLOBIN 23.1 pg (29.0-33.0); MEAN CORPUSCULAR HGB CONC 31.1 g/dl (32.0-37.0); MEAN CORPUSCULAR VOLUME 74.2 fl (82.0-101.0); MONOCYTE # 0.5 10^3/ul (0.3-0.9); NEUTROPHIL # 4.1 10^3/ul (1.6-7.5); NEUTROPHILS % 76.6 % (39.0-77.0); PLATELET COUNT 229 10^3/UL (140-415); RED CELL DISTRIBUTION WIDTH 20.7 % (11.5-14.5)
[2018-09-26 06:04] LABS: WHITE BLOOD COUNT 5.3 10^3/ul (4.8-10.8)
[2018-09-26 06:26] LABS: INR 1.38; PROTIME 17.2 Sec (11.9-14.9); PT RATIO 1.3
[2018-09-26 06:38] LABS: PHOSPHORUS 3.8 mg/dl (2.5-4.9)
[2018-09-26 06:38] LABS: MAGNESIUM 2.2 mg/dl (1.7-2.5)
[2018-09-26 06:39] LABS: ANION GAP 11 (5-13); BLOOD UREA NITROGEN 32 mg/dl (7-20); CALCIUM 9.3 mg/dl (8.4-10.2); CARBON DIOXIDE 35 mmol/L (21-31); CHLORIDE 92 mmol/L (97-110); CREATININE 0.87 mg/dl (0.61-1.24); GLUCOSE 113 mg/dl (70-220); SODIUM 138 mmol/L (135-144)
[2018-09-26] MEDS: FAMOTIDINE 20 MG TAB PO ×2 (09:09→21:46)
[2018-09-26] MEDS: CYANOCOBALAMIN 500 MCG TAB PO (09:09)
[2018-09-26] MEDS: SPIRONOLACTONE 25 MG TAB PO (09:09)
[2018-09-26] MEDS: DILTIAZEM 30 MG TAB PO ×3 (09:09→21:46)
[2018-09-26] MEDS: FOLIC ACID 1 MG TAB PO (09:09)
[2018-09-26] MEDS: FUROSEMIDE 40 MG INJ IV (09:09)
[2018-09-26] MEDS: ERGOCALCIFEROL 50,000 UNIT CAP PO (11:46)
[2018-09-26] MEDS: DIGOXIN 0.125 MG TAB PO (13:27)
[2018-09-26] MEDS: WARFARIN 2 MG TAB PO (17:47)
[2018-09-26] MEDS: TAMSULOSIN (SR) 0.4 MG CAP PO (21:46)
[2018-09-26] MEDS: ENOXAPARIN 80 MG/0.8 ML SYG SC (21:53)
[2018-09-27 05:27] LABS: ADD MAN DIFF? NO
[2018-09-27 05:34] LABS: WHITE BLOOD COUNT 4.8 10^3/ul (4.8-10.8)
[2018-09-27 05:34] LABS: BASOPHILS % 0.2 % (0.0-2.0); EOSINOPHILS % 0.6 % (0.0-7.0); HEMATOCRIT 33.8 % (42.0-52.0); HEMOGLOBIN 10.5 g/dl (14.0-18.0); LYMPHOCYTES # 0.8 10^3/ul (0.8-2.9); LYMPHOCYTES % 17.2 % (15.0-51.0); MEAN CORPUSCULAR HEMOGLOBIN 23.4 pg (29.0-33.0); MEAN CORPUSCULAR HGB CONC 31.1 g/dl (32.0-37.0); MEAN CORPUSCULAR VOLUME 75.4 fl (82.0-101.0); MEAN PLATELET VOLUME 10.1 fl (7.4-10.4); MONOCYTE # 0.6 10^3/ul (0.3-0.9); MONOCYTES % 12.6 % (0.0-11.0); NEUTROPHIL # 3.3 10^3/ul (1.6-7.5); NEUTROPHILS % 68.3 % (39.0-77.0); PLATELET COUNT 234 10^3/UL (140-415); RED BLOOD COUNT 4.48 10^6/ul (4.70-6.10); RED CELL DISTRIBUTION WIDTH 20.6 % (11.5-14.5)
[2018-09-27 05:49] LABS: INR 1.46; PROTIME 17.8 Sec (11.9-14.9); PT RATIO 1.4
[2018-09-27 05:57] LABS: ALANINE AMINOTRANSFERASE 31 IU/L (13-69); ALBUMIN 3.6 g/dl (3.3-4.9); ALBUMIN/GLOBULIN RATIO 0.97; ALKALINE PHOSPHATASE 141 IU/L (42-121); ANION GAP 10 (5-13); ASPARTATE AMINO TRANSFERASE 30 IU/L (15-46); BILIRUBIN,INDIRECT 0.9 mg/dl (0-1.1); BILIRUBIN,TOTAL 0.9 mg/dl (0.2-1.3); BLOOD UREA NITROGEN 34 mg/dl (7-20); CALCIUM 9.3 mg/dl (8.4-10.2); CARBON DIOXIDE 33 mmol/L (21-31); CHLORIDE 92 mmol/L (97-110); CREATININE 0.79 mg/dl (0.61-1.24); GLUCOSE 105 mg/dl (70-220); MAGNESIUM 2.1 mg/dl (1.7-2.5); SODIUM 135 mmol/L (135-144); TOTAL PROTEIN 7.3 g/dl (6.1-8.1)
[2018-09-27 05:58] LABS: DIGOXIN 1.2 ng/ml (1.0-2.0)
[2018-09-27 05:59] LABS: POTASSIUM 4.1 mmol/L (3.5-5.1)
[2018-09-27] MEDS: FOLIC ACID 1 MG TAB PO (09:07)
[2018-09-27] MEDS: FUROSEMIDE 40 MG INJ IV (09:08)
[2018-09-27] MEDS: FAMOTIDINE 20 MG TAB PO ×2 (09:08→21:55)
[2018-09-27] MEDS: SPIRONOLACTONE 25 MG TAB PO (09:08)
[2018-09-27] MEDS: CYANOCOBALAMIN 500 MCG TAB PO (09:08)
[2018-09-27] MEDS: DILTIAZEM 30 MG TAB PO ×3 (09:09→21:55)
[2018-09-27] MEDS: DIGOXIN 0.125 MG TAB PO (13:09)
[2018-09-27] MEDS: WARFARIN 2 MG TAB PO (17:46)
[2018-09-27] MEDS: WARFARIN 3 MG TAB GTB (17:51)
[2018-09-27] MEDS: TAMSULOSIN (SR) 0.4 MG CAP PO (21:55)
[2018-09-27] MEDS: ENOXAPARIN 80 MG/0.8 ML SYG SC (22:06)
[2018-09-28 05:06] LABS: ADD MAN DIFF? NO
[2018-09-28 05:09] LABS: WHITE BLOOD COUNT 4.8 10^3/ul (4.8-10.8)
[2018-09-28 05:09] LABS: BASOPHILS % 0.4 % (0.0-2.0); EOSINOPHILS % 0.4 % (0.0-7.0); HEMATOCRIT 34.2 % (42.0-52.0); HEMOGLOBIN 10.5 g/dl (14.0-18.0); LYMPHOCYTES # 0.8 10^3/ul (0.8-2.9); LYMPHOCYTES % 16.4 % (15.0-51.0); MEAN CORPUSCULAR HGB CONC 30.7 g/dl (32.0-37.0); MEAN CORPUSCULAR VOLUME 74.8 fl (82.0-101.0); MEAN PLATELET VOLUME 10.1 fl (7.4-10.4); MONOCYTE # 0.6 10^3/ul (0.3-0.9); MONOCYTES % 12.9 % (0.0-11.0); NEUTROPHIL # 3.3 10^3/ul (1.6-7.5); NEUTROPHILS % 68.9 % (39.0-77.0); PLATELET COUNT 246 10^3/UL (140-415); RED BLOOD COUNT 4.57 10^6/ul (4.70-6.10); RED CELL DISTRIBUTION WIDTH 20.5 % (11.5-14.5)
[2018-09-28 05:37] LABS: ALANINE AMINOTRANSFERASE 27 IU/L (13-69); ALBUMIN 3.7 g/dl (3.3-4.9); ALBUMIN/GLOBULIN RATIO 1.02; ALKALINE PHOSPHATASE 152 IU/L (42-121); ANION GAP 10 (5-13); ASPARTATE AMINO TRANSFERASE 27 IU/L (15-46); BILIRUBIN,INDIRECT 0.7 mg/dl (0-1.1); BILIRUBIN,TOTAL 0.7 mg/dl (0.2-1.3); BLOOD UREA NITROGEN 36 mg/dl (7-20); CALCIUM 9.5 mg/dl (8.4-10.2); CARBON DIOXIDE 31 mmol/L (21-31); CHLORIDE 94 mmol/L (97-110); CREATININE 0.83 mg/dl (0.61-1.24); GLUCOSE 111 mg/dl (70-220); POTASSIUM 4.3 mmol/L (3.5-5.1); SODIUM 135 mmol/L (135-144); TOTAL PROTEIN 7.3 g/dl (6.1-8.1)
[2018-09-28 05:43] LABS: PROTIME 19.1 Sec (11.9-14.9); PT RATIO 1.5
[2018-09-28 05:44] LABS: PARTIAL THROMBOPLASTIN TIME 39.3 Sec (23.0-35.0)
[2018-09-28 05:46] LABS: MAGNESIUM 2.2 mg/dl (1.7-2.5)
[2018-09-28] MEDS: FOLIC ACID 1 MG TAB PO (09:30)
[2018-09-28] MEDS: FAMOTIDINE 20 MG TAB PO ×2 (09:30→20:42)
[2018-09-28] MEDS: SPIRONOLACTONE 25 MG TAB PO (09:31)
[2018-09-28] MEDS: CYANOCOBALAMIN 500 MCG TAB PO (09:31)
[2018-09-28] MEDS: FUROSEMIDE 40 MG INJ IV (09:32)
[2018-09-28] MEDS: DILTIAZEM 30 MG TAB PO ×3 (09:32→20:42)
[2018-09-28] MEDS: DIGOXIN 0.125 MG TAB PO (12:56)
[2018-09-28] MEDS: WARFARIN 2 MG TAB PO (17:38)
[2018-09-28] MEDS: TAMSULOSIN (SR) 0.4 MG CAP PO (20:42)
[2018-09-28] MEDS: ENOXAPARIN 80 MG/0.8 ML SYG SC (20:44)
[2018-09-29] MEDS: FOLIC ACID 1 MG TAB PO (08:44)
[2018-09-29] MEDS: CYANOCOBALAMIN 500 MCG TAB PO (08:44)
[2018-09-29] MEDS: FAMOTIDINE 20 MG TAB PO ×2 (08:44→21:06)
[2018-09-29] MEDS: SPIRONOLACTONE 25 MG TAB PO (08:44)
[2018-09-29] MEDS: DILTIAZEM 30 MG TAB PO ×3 (08:45→21:05)
[2018-09-29] MEDS: FUROSEMIDE 40 MG INJ IV (08:45)
[2018-09-29 09:00] LABS: ALANINE AMINOTRANSFERASE 30 IU/L (13-69); ALBUMIN/GLOBULIN RATIO 0.95; ALKALINE PHOSPHATASE 161 IU/L (42-121); ANION GAP 10 (5-13); ASPARTATE AMINO TRANSFERASE 34 IU/L (15-46); BILIRUBIN,INDIRECT 0.5 mg/dl (0-1.1); BILIRUBIN,TOTAL 0.5 mg/dl (0.2-1.3); BLOOD UREA NITROGEN 34 mg/dl (7-20); CALCIUM 9.6 mg/dl (8.4-10.2); CARBON DIOXIDE 32 mmol/L (21-31); CHLORIDE 94 mmol/L (97-110); CREATININE 0.98 mg/dl (0.61-1.24); GLUCOSE 115 mg/dl (70-220); POTASSIUM 4.7 mmol/L (3.5-5.1); SODIUM 136 mmol/L (135-144); TOTAL PROTEIN 8.2 g/dl (6.1-8.1)
[2018-09-29 09:02] LABS: INR 1.74; PROTIME 20.4 Sec (11.9-14.9); PT RATIO 1.6
[2018-09-29] MEDS: DIGOXIN 0.125 MG TAB PO (13:06)
[2018-09-29] MEDS: WARFARIN 3 MG TAB GTB (17:14)
[2018-09-29] MEDS: ENOXAPARIN 80 MG/0.8 ML SYG SC (21:07)
[2018-09-29] MEDS: TAMSULOSIN (SR) 0.4 MG CAP PO (21:10)
[2018-09-30 06:05] LABS: ADD MAN DIFF? NO
[2018-09-30 06:09] LABS: BASOPHILS % 0.4 % (0.0-2.0); EOSINOPHILS % 0.4 % (0.0-7.0); HEMOGLOBIN 10.7 g/dl (14.0-18.0); LYMPHOCYTES # 0.8 10^3/ul (0.8-2.9); LYMPHOCYTES % 17.6 % (15.0-51.0); MEAN CORPUSCULAR HEMOGLOBIN 23.6 pg (29.0-33.0); MEAN CORPUSCULAR HGB CONC 30.6 g/dl (32.0-37.0); MEAN CORPUSCULAR VOLUME 77.1 fl (82.0-101.0); MEAN PLATELET VOLUME 9.6 fl (7.4-10.4); MONOCYTE # 0.5 10^3/ul (0.3-0.9); MONOCYTES % 10.9 % (0.0-11.0); NEUTROPHIL # 3.3 10^3/ul (1.6-7.5); NEUTROPHILS % 69.6 % (39.0-77.0); PLATELET COUNT 251 10^3/UL (140-415); RED BLOOD COUNT 4.54 10^6/ul (4.70-6.10); RED CELL DISTRIBUTION WIDTH 20.7 % (11.5-14.5)
[2018-09-30 06:09] LABS: WHITE BLOOD COUNT 4.8 10^3/ul (4.8-10.8)
[2018-09-30 06:28] LABS: INR 1.82; PROTIME 21.2 Sec (11.9-14.9); PT RATIO 1.7
[2018-09-30 06:31] LABS: ALANINE AMINOTRANSFERASE 30 IU/L (13-69); ALBUMIN 3.7 g/dl (3.3-4.9); ALBUMIN/GLOBULIN RATIO 0.92; ALKALINE PHOSPHATASE 157 IU/L (42-121); ANION GAP 13 (5-13); ASPARTATE AMINO TRANSFERASE 24 IU/L (15-46); BILIRUBIN,INDIRECT 0.6 mg/dl (0-1.1); BILIRUBIN,TOTAL 0.6 mg/dl (0.2-1.3); BLOOD UREA NITROGEN 33 mg/dl (7-20); CALCIUM 9.2 mg/dl (8.4-10.2); CARBON DIOXIDE 35 mmol/L (21-31); CHLORIDE 90 mmol/L (97-110); CREATININE 0.84 mg/dl (0.61-1.24); GLUCOSE 106 mg/dl (70-220); MAGNESIUM 2.2 mg/dl (1.7-2.5); POTASSIUM 4.6 mmol/L (3.5-5.1); SODIUM 138 mmol/L (135-144); TOTAL PROTEIN 7.7 g/dl (6.1-8.1)
[2018-09-30 06:36] LABS: DIGOXIN 1.5 ng/ml (1.0-2.0)
[2018-09-30 06:37] LABS: B-TYPE NATRIURETIC PEPTIDE 1020 PG/ML (0-450)
[2018-09-30] MEDS: FOLIC ACID 1 MG TAB PO (08:46)
[2018-09-30] MEDS: FUROSEMIDE 40 MG INJ IV (08:46)
[2018-09-30] MEDS: SPIRONOLACTONE 25 MG TAB PO (08:46)
[2018-09-30] MEDS: CYANOCOBALAMIN 500 MCG TAB PO (08:46)
[2018-09-30] MEDS: DILTIAZEM 30 MG TAB PO ×2 (08:47→12:23)
[2018-09-30] MEDS: FAMOTIDINE 20 MG TAB PO (08:47)
[2018-09-30] MEDS: DIGOXIN 0.125 MG TAB PO (12:23)
[2018-09-30] MEDS: WARFARIN 2 MG TAB PO (17:02)
[2018-10-03] MEDS ORDERED: WARFARIN 2 MG TAB PO (17:00)
== END 2018-09-30 17:53 | DRG 291 ==
LOC: E/R 19:08 → 6WM 09-15 03:02
PROC: 0W993ZZ Drainage of Right Pleural Cavity, Percutaneous Approach (ICD-10-PCS; principal; 2018-09-18)
PROC: 0W9B3ZZ Drainage of Left Pleural Cavity, Percutaneous Approach (ICD-10-PCS; 2018-09-20)
DX: I11.0 Hypertensive heart disease with heart failure (principal); J96.21 Acute and chronic respiratory failure with hypoxia; J91.8 Pleural effusion in other conditions classified elsewhere; I69.354 Hemiplegia and hemiparesis following cerebral infarction affecting left non-dominant side; I31.3 Pericardial effusion (noninflammatory); I50.33 Acute on chronic diastolic (congestive) heart failure; I05.2 Rheumatic mitral stenosis with insufficiency; I25.10 Atherosclerotic heart disease of native coronary artery without angina pectoris; D50.9 Iron deficiency anemia, unspecified; E87.6 Hypokalemia; E78.5 Hyperlipidemia, unspecified; I27.20 Pulmonary hypertension, unspecified; I48.2 Chronic atrial fibrillation; R62.7 Adult failure to thrive; Z68.24 Body mass index [BMI] 24.0-24.9, adult; I25.2 Old myocardial infarction; Z86.79 Personal history of other diseases of the circulatory system; Z79.01 Long term (current) use of anticoagulants; Z87.891 Personal history of nicotine dependence
CPT/HCPCS: 32555; 36415; 36600; 70450; 71045; 71250; 74176; 74230; 76604; 76942; 80048; 80053; 80061; 80162; 81001; 82728; 82803; 83036; 83540; 83690; 83735; 83880; 84100; 84439; 84443; 84484; 85025; 85610; 85730; 86850; 86900; 86901; 87040; 90686; 92526; 92610; 92611; 93005; 93306; 94644; 94660; 96374; 96375; 97110; 97162; 97530; 99285-25